=== PATIENT | male | born 1990 | race Two or more races ===

== ENCOUNTER 2020-12-13 02:58 | Inpatient (IN) | payer MEDICAID ==
[~2020-12-13] VITALS: Ht 188 cm; Wt 115.8 kg
[2020-12-13] MEDS ORDERED: PERTUSS(ACELL),DIPH,TET VAC/PF 0.5 ML SYRINGE IM. ONE (03:15)
[2020-12-13] MEDS ORDERED: BACITRACIN 0.9 GM PACKET OINTMENT TP ONE (03:15)
[2020-12-13 03:29] LABS: GLUCOSE,POINT OF CARE 105 MG/DL (70-110)
[2020-12-13 03:31] LABS: ANION GAP 14 mmol/L (8-16); BASOPHILS % (AUTO) 0.2 % (0.0-2.0); CALCIUM, TOTAL 8.8 mg/dL (8.8-10.5); CARBON DIOXIDE 23 mmol/L (22-29); CHLORIDE 101 mmol/L (98-107); EOSINOPHILS % (AUTO) 0.7 % (1.0-6.0); GLOMERULAR FILTR. RATE CALC > 60 mL/min (>60); GLUCOSE,RANDOM 116 mg/dL (70-110); HEMOGLOBIN 15.1 g/dL (13.5-17.5); LYMPHOCYTES # (AUTO) 2.4 K/uL (1.0-4.8); LYMPHOCYTES % (AUTO) 28.8 % (22.0-44.0); MEAN CORPUSCULAR HEMOGLOBIN 30.6 pg (26.0-34.0); MEAN CORPUSCULAR HGB CONC 34.3 G/dL (31.0-37.0); MEAN CORPUSCULAR VOLUME 89 fL (80-100); MONOCYTES # (AUTO) 0.5 K/uL (0.1-1.0); MONOCYTES % (AUTO) 5.8 % (2.0-9.0); NEUTROPHILS # (AUTO) 5.3 K/uL (1.8-7.7); NEUTROPHILS % (AUTO) 64.5 % (40.0-70.0); PLATELET COUNT (AUTO) 270 K/uL (150-450); POTASSIUM 3.1 mmol/L (3.5-5.1); RED BLOOD CELL COUNT(AUTO) 4.92 MIL/uL (4.50-5.90); RED CELL DISTRIBUTION WIDTH 13.6 % (11.5-14.5); SODIUM SERUM 138 mmol/L (136-145); UREA NITROGEN, BLOOD 11 mg/dL (7-18)
[2020-12-13 03:37] LABS: ALANINE AMINOTRANSFERASE 44 U/L (12-78); ALBUMIN 4.1 g/dL (3.4-5.0); ALKALINE PHOSPHATASE 67 U/L (46-116); ASPARTATE AMINOTRANSFERASE 47 U/L (15-37); BILIRUBIN,TOTAL 0.7 mg/dL (0.1-1.0); TOTAL PROTEIN, SERUM 8.1 g/dL (6.4-8.2)
[2020-12-13 03:40] LABS: SALICYLATE < 0.2 mg/dL (2.8-20.0)
[2020-12-13 03:41] LABS: ACETAMINOPHEN < 2 mcg/mL (10-30)
[2020-12-13 04:28] LABS: COVID AG,FIA SOURCE NASOPHARYNGEAL
[2020-12-13] MEDS ORDERED: POTASSIUM CHLORIDE 20 MEQ ER TABLET PO ONE (04:30)
[2020-12-13 04:37] LABS: APPEARANCE,URINE CLEAR (CLEAR); BILIRUBIN,URINE NEGATIVE (NEGATIVE); GLUCOSE, URINE (UA) NEGATIVE (NEGATIVE); KETONES,URINE NEGATIVE (NEGATIVE); LEUKOCYTE ESTERASE ,URINE NEGATIVE (NEGATIVE); NITRATE,URINE NEGATIVE (NEGATIVE); OCCULT BLOOD,URINE NEGATIVE (NEGATIVE); PROTEIN,URINE NEGATIVE (NEGATIVE); UROBILINOGEN,URINE 0.2 mg/dL (<=1.0)
[2020-12-13 04:42] LABS: AMPHET/METH SCREEN,URINE NEGATIVE (NEGATIVE); BARBITURATE SCREEN, URINE NEGATIVE (NEGATIVE); BENZODIAZEPINES SCREEN,URINE NEGATIVE (NEGATIVE); CANNABINOID SCREEN,URINE NEGATIVE (NEGATIVE); COCAINE SCREEN,URINE POSITIVE (NEGATIVE); METHADONE SCREEN, URINE NEGATIVE (NEGATIVE); OPIATE SCREEN,URINE NEGATIVE (NEGATIVE)
[2020-12-13 04:43] LABS: PHENCYCLIDINE SCREEN,URINE NEGATIVE (NEGATIVE)
[2020-12-13 04:49] LABS: BACTERIA,URINE None Seen /HPF (None Seen); RBC,URINE None Seen /HPF (0-2); SQUAMOUS EPITHELIAL CELL,UR Rare /LPF (None Seen); WBC,URINE None Seen /HPF (0-5)
[2020-12-13] MEDS ORDERED: LORazepam 2 MG TABLET PO PRN ×2 (05:00→16:00)
[2020-12-13] MEDS ORDERED: OLANZapine 5 MG RAPDIS TABLET PO PRN (05:00)
[2020-12-13 16:00] VITALS: BP 143/80
[2020-12-13] MEDS ORDERED: PROMETHAZINE HCL 25 MG TABLET PO PRN (16:00)
[2020-12-13] MEDS ORDERED: MAGNESIUM HYDROXIDE SUSPENSION 30 ML UDCUP PO PRN (16:00)
[2020-12-13] MEDS ORDERED: MAG HYDROX/AL HYDROX/SIMETH ES 30 ML SUSPENSION UDCUP PO PRN (16:00)
[2020-12-13] MEDS ORDERED: LOPERAMIDE HCL 2 MG CAPSULE PO PRN ×2 (16:00)
[2020-12-13] MEDS ORDERED: ACETAMINOPHEN 325 MG TABLET PO PRN (16:00)
[2020-12-13] MEDS ORDERED: CYANOCOBALAMIN 1,000 MCG/ML VIAL IM ONE (16:00)
[2020-12-13] MEDS ORDERED: GuaiFENesin/D-METHORPHAN [SUGAR-FREE] 200-20MG/10 ML SYRUP UDCUP PO PRN (16:00)
[2020-12-13] MEDS ORDERED: TUBERCULIN, PURIFIED PROTEIN DERIVATIVE 5 TU/0.1 ML SYRINGE ID ONE (16:00)
[2020-12-13] MEDS ORDERED: HydrOXYzine PAMOATE 50 MG CAPSULE PO PRN (16:00)
[2020-12-13] MEDS: THIAMINE 100 MG TABLET PO SCH (17:26)
[2020-12-13 17:30] VITALS: BP_SYST 134; BP_SYST 136; BP_DIAS 78; BP_DIAS 80
[2020-12-13 19:17] VITALS: BP 158/80
[2020-12-13] MEDS: MIRTAZAPINE 15 MG TABLET PO SCH (20:29)
[2020-12-13] MEDS: ZOLPIDEM TARTRATE 10 MG TABLET PO PRN (20:29)
[2020-12-13] MEDS: MELATONIN 5 MG TABLET PO SCH (20:29)
[2020-12-13 21:30] VITALS: BP 130/76
[2020-12-14 01:22] VITALS: BP 126/74
[2020-12-14 01:32] VITALS: BP 126/74
[2020-12-14 05:31] VITALS: BP 132/70
[2020-12-14] MEDS ORDERED: LORazepam 2 MG TABLET PO PRN (07:00)
[2020-12-14] MEDS ORDERED: POTASSIUM CHLORIDE 20 MEQ ER TABLET PO ONE (08:00)
[2020-12-14 08:19] VITALS: BP 114/73
[2020-12-14] MEDS: FOLIC ACID 1 MG TABLET PO SCH (08:20)
[2020-12-14] MEDS: LORazepam 2 MG TABLET PO SCH ×3 (08:20→16:20)
[2020-12-14] MEDS: MULTIVITAMINS WITH MINERALS, THERAPEUTIC TABLET PO SCH (08:20)
[2020-12-14] MEDS: NALTREXONE HCL 50 MG TABLET PO SCH (08:20)
[2020-12-14] MEDS: THIAMINE 100 MG TABLET PO SCH ×2 (08:20→16:20)
[2020-12-14] MEDS: OMEGA-3/DHA/EPA/FISH OIL 1,000 MG CAPSULE PO SCH (08:20)
[2020-12-14 08:23] LABS: HEMOGLOBIN A1C 5.4 % (3.8-5.6)
[2020-12-14 08:43] LABS: CHOL/HDL RATIO 6.1 (4.2-7.3); FREE T4 (FREE THYROXINE) 1.11 ng/dL (0.76-1.46); THYROID STIMULATING HORMONE 1.93 uIU/mL (0.36-3.74)
[2020-12-14 15:43] VITALS: BP 136/79
[2020-12-14 16:02] VITALS: BP 139/81
[2020-12-14] MEDS: MIRTAZAPINE 15 MG TABLET PO SCH (20:14)
[2020-12-14] MEDS: MELATONIN 5 MG TABLET PO SCH (20:14)
[2020-12-14] MEDS: ZOLPIDEM TARTRATE 10 MG TABLET PO PRN (20:15)
[2020-12-15 04:49] VITALS: BP 121/71
[2020-12-15] MEDS ORDERED: MELA5TAB3 PO (07:53)
[2020-12-15] MEDS ORDERED: NALT50TA PO (07:53)
[2020-12-15] MEDS ORDERED: MIRT-89 PO (07:53)
[2020-12-15] MEDS ORDERED: OMEG-135 PO (07:53)
[2020-12-15] MEDS: FOLIC ACID 1 MG TABLET PO SCH (08:28)
[2020-12-15] MEDS: THIAMINE 100 MG TABLET PO SCH (08:28)
[2020-12-15] MEDS: OMEGA-3/DHA/EPA/FISH OIL 1,000 MG CAPSULE PO SCH (08:28)
[2020-12-15] MEDS: NALTREXONE HCL 50 MG TABLET PO SCH (08:28)
[2020-12-15] MEDS: MULTIVITAMINS WITH MINERALS, THERAPEUTIC TABLET PO SCH (08:28)
[2020-12-16] MEDS ORDERED: LORazepam 1 MG TABLET PO PRN (07:00)
[2020-12-16] MEDS ORDERED: LORazepam 1 MG TABLET PO SCH (09:00)
[2020-12-17] MEDS ORDERED: LORazepam 1 MG TABLET PO PRN (07:00)
== END 2020-12-15 11:05 | disposition home or self-care (01) | DRG 751 ==
LOC: EMS 02:59 → B2S 14:42 → B3A 15:49
PROVIDERS: ADMIT Psychiatry & Neurology Psychiatry; ATTEND Psychiatry & Neurology Psychiatry
DX: F32.2 Major depressive disorder, single episode, severe without psychotic features (principal); E87.6 Hypokalemia; F10.129 Alcohol abuse with intoxication, unspecified; Z55.9 Problems related to education and literacy, unspecified; Z59.9 Problem related to housing and economic circumstances, unspecified; Z65.3 Problems related to other legal circumstances; F12.90 Cannabis use, unspecified, uncomplicated; S61.419A Laceration without foreign body of unspecified hand, initial encounter; Y93.89 Activity, other specified; Y92.89 Other specified places as the place of occurrence of the external cause; Z20.822 Contact with and (suspected) exposure to COVID-19
CPT/HCPCS: 80053; 80061; 81001; 82962; 83036; 84439; 84443; 85025; 86592; 90715; 99285; A9575; G0480; G0481; J3420